=== PATIENT | male | born 1970 | race Caucasian/White ===

== ENCOUNTER → 2017-11-03 09:24 | Outpatient (POV) | payer OTHER, SELFPAY ==
[2017-11-03 09:46] VITALS: BP 149/73; RESP 18; O2SAT 98
--- NOTE | 2017-11-03 10:50 | HMH.PMCON ---
Assessment and Plan (1) Degenerative disc disease Current visit: Yes Status: Chronic Qualifiers: Spinal region: lumbar Qualified Code(s): M51.36 - Other intervertebral disc degeneration, lumbar region Category: Medical (2) Post laminectomy syndrome Current visit: Yes Status: Chronic Category: Medical Code(s): M96.1 - Postlaminectomy syndrome, not elsewhere classified - Assessment and plan all Dx Assessment and Plan for all problems:: I gave the patient information on neuro stimulation. Patient is a reviewed this. Patient will be seen by his primary care physician again. Patient understands that we do not do primary medication management for pain medication. We will follow-up with the patient if he is interested in neuro stimulation. This note was dictated using voice recognition software and may contain errors or omissions HPI - Data of Consult Consult date: 11/03/17 Requesting Physician: Breanna Hagan APRN Primary Care Provider: Cesia Marcum Family Provider: Cesia Farrell MD - Consult Narrative Reason for consult: Neck and back pain History of present illness: Mr. Barkley is a 47 year old male presents today for consultation in regards to his generalized pain specifically in his neck and his low back. Patient had neck surgery back in May. Patient states that he had a disc replacement. Patient states that the neurosurgeon told him that he would need a fusion however on the day of the surgery he changed it to a disc replacement. Patient states he is also told he needed back surgery however this was never completed. Patient states he fired his neurosurgeon . Patient states that since this is happened he has been unable to get his pain medication. Patient states he had been referred to several pain clinics however they do not answer their phone. He states that last time he spoke with somebody at a another pain clinic they were pissy . Patient states he does not want to go to these places. Patient states that he is seen a psychiatrist after his mom stating that he had some harmful thoughts however not self-harm. Patient states that the doctors wanted to increase his medications however he told them no. Patient does have an MRI showing degenerative disc disease along with possible nerve impingement. Patient has tried injections and states they do not help. Patient states that physical therapy is like a torture chamber I discussed with the patient that we do not do primarily medication management here. Patient states that the dope heads are running [employer] and doctors just drain the insurance [employer] . I discussed with the patient that the only thing we could really offer him with a neurostimulator. I did give the patient some information on this. Patient is asking what he should do with his pain medicine right now stating that his primary care we will only write him for 2 a day. I encouraged him to look into the information on neuro stimulation and I also encouraged him to making a follow-up an appointment with his primary care physician. Patient rates his pain a 9 out of 10 today. Mostly in his neck and left arm. She has numbness and tingling in bilateral legs along with left arm CC: Breanna Hagan APRN [facility] History I have reviewed the patient's past medical history: Yes Medical History: Reports:: Hypertension Denies:: Diabetes Mellitus Type 1, Diabetes Mellitus Type 2 Other Medical History: Reports: Arthritis Laterality Cases: Left: Other - *Social History Smoking Status: Current every day smoker Tobacco Type: cigarettes # Packs/Day (cigarettes): 1 Alcohol Intake: never Occupational Status: employed Housing: house - Psychiatric History Expresses thoughts of harming self/others: None Suicide Plan Description: No Plan *Family Hx:: Bleeding Disorder, Cancer Review of Systems - Review of Systems ROS General: no recent weight change, no fever, no sl
--- NOTE | 2017-11-03 10:53 | P.CONS_ITS ---
Assessment and Plan (1) Degenerative disc disease Current visit: Yes Status: Chronic Qualifiers: Spinal region: lumbar Qualified Code(s): M51.36 - Other intervertebral disc degeneration, lumbar region Category: Medical (2) Post laminectomy syndrome Current visit: Yes Status: Chronic Category: Medical Code(s): M96.1 - Postlaminectomy syndrome, not elsewhere classified - Assessment and plan all Dx Assessment and Plan for all problems:: I gave the patient information on neuro stimulation. Patient is a reviewed this. Patient will be seen by his primary care physician again. Patient understands that we do not do primary medication management for pain medication. We will follow-up with the patient if he is interested in neuro stimulation. This note was dictated using voice recognition software and may contain errors or omissions HPI - Data of Consult Consult date: 11/03/17 Requesting Physician: Breanna Hagan APRN Primary Care Provider: Cesia Marcum Family Provider: Cesia Farrell MD - Consult Narrative Reason for consult: Neck and back pain History of present illness: Mr. Barkley is a 47 year old male presents today for consultation in regards to his generalized pain specifically in his neck and his low back. Patient had neck surgery back in May. Patient states that he had a disc replacement. Patient states that the neurosurgeon told him that he would need a fusion however on the day of the surgery he changed it to a disc replacement. Patient states he is also told he needed back surgery however this was never completed. Patient states he fired his neurosurgeon . Patient states that since this is happened he has been unable to get his pain medication. Patient states he had been referred to several pain clinics however they do not answer their phone. He states that last time he spoke with somebody at a another pain clinic they were pissy . Patient states he does not want to go to these places. Patient states that he is seen a psychiatrist after his mom stating that he had some harmful thoughts however not self-harm. Patient states that the doctors wanted to increase his medications however he told them no. Patient does have an MRI showing degenerative disc disease along with possible nerve impingement. Patient has tried injections and states they do not help. Patient states that physical therapy is like a torture chamber I discussed with the patient that we do not do primarily medication management here. Patient states that the dope heads are running [employer] and doctors just drain the insurance [employer] . I discussed with the patient that the only thing we could really offer him with a neurostimulator. I did give the patient some information on this. Patient is asking what he should do with his pain medicine right now stating that his primary care we will only write him for 2 a day. I encouraged him to look into the information on neuro stimulation and I also encouraged him to making a follow-up an appointment with his primary care physician. Patient rates his pain a 9 out of 10 today. Mostly in his neck and left arm. She has numbness and tingling in bilateral legs along with left arm CC: Breanna Hagan APRN [facility] History I have reviewed the patient's past medical history: Yes Medical History: Reports:: Hypertension Denies:: Diabetes Mellitus Type 1, Diabetes Mellitus Type 2 Other Medical History: Reports: Arthritis Laterality Cases: Left: Other - *Social History Smoking Status: Current every day smoker Tobacco Type: cigarettes # Packs/Day (cigarettes): 1 A
== END ==
PROVIDERS: PCP Family Medicine; Visit Provider Clinical Nurse Specialist Family Health
DX: M51.36 Other intervertebral disc degeneration, lumbar region (principal); M96.1 Postlaminectomy syndrome, not elsewhere classified
CPT/HCPCS: 99202

== ENCOUNTER 2018-02-26 09:01 | Outpatient (RCR) | payer OTHER, SELFPAY | END 2018-02-26 09:05 | disposition home or self-care (01) | LOC: PT 09:01 | PROVIDERS: Visit Provider Physician Assistant Medical | DX: M47.812 Spondylosis without myelopathy or radiculopathy, cervical region (principal); M47.816 Spondylosis without myelopathy or radiculopathy, lumbar region | CPT/HCPCS: 97163 ==

== ENCOUNTER → 2020-09-29 10:29 | Outpatient (CLI) | payer MEDICARE, OTHER, SELFPAY ==
[2020-09-29 11:02] LABS: Basophils # 0.1 K/mm3 (0-0.2); Basophils % 0.9 % (0.1-2.0); Eosinophils # 0.2 K/mm3 (0.0-0.4); Hematocrit 48.1 % (42.0-52.0); Hemoglobin 15.8 g/dL (14.1-18.0); Lymphocytes # 2.1 K/mm3 (0.7-4.5); Lymphocytes % 32.1 % (10-50); Mean Corpuscular HGB Conc 32.9 g/dL (31.8-35.4); Mean Corpuscular Hemoglobin 29.1 pg (27.0-31.2); Mean Corpuscular Volume 88.4 fl (80-94); Mean Platelet Volume 7.5 fl (7.4-10.4); Monocytes # 0.5 K/mm3 (0.1-1.0); Monocytes % 8.3 % (1.7-9.3); Neutrophils # 3.6 K/mm3 (1.8-7.8); Neutrophils % 55.6 % (37.0-80.0); Platelet Count 224 K/mm3 (142-424); Red Blood Count 5.44 M/mm3 (4.60-6.20); Red Cell Distribution Width 13.5 % (11.5-17.5); White Blood Count 6.4 K/mm3 (4.8-10.8)
[2020-09-29 11:24] LABS: Chloride 100 mmol/L (98-107); Sodium 138 mmol/L (136-145)
[2020-09-29 11:25] LABS: Potassium 5.2 mmoL/L (3.5-5.1)
[2020-09-29 11:27] LABS: Alanine Aminotransferase 16 U/L (12-78); Alkaline Phosphatase 65 U/L (38-126); Anion Gap 13.2 mEq/L (5-15); Aspartate Amino Transferase 29 U/L (17-59); Bilirubin,Total 0.4 mg/dl (0.2-1.3); Blood Urea Nitrogen 18 mg/dl (9-20); Calcium 9.6 mg/dl (8.4-10.2); Carbon Dioxide 30 mmol/L (22.0-30.0); Cholesterol 208 mg/dl (140-200); Estimated Glomerular Filt Rate 90 ml/min (>60); GFR (African American) 109 ML/MIN (>60); Glucose 100 mg/dl (74-100); Iron 107 ug/dL (49-181); Triglycerides 92 mg/dl (30-150); VLDL Cholesterol 18 mg/dL (0-40)
[2020-09-29 11:28] LABS: Albumin Level 4.4 g/dl (3.5-5.0); Albumin/Globulin Ratio 1.6 (1.1-1.8); Chol/HDL Ratio 3.3 (1-3.5); Globulin 2.8 g/dL (1.3-3.2); HDL Cholesterol 63 mg/dl (40-60); Total Protein,Serum 7.2 g/dl (6.3-8.2)
[2020-09-29 11:37] LABS: Total Iron Binding Capacity 279 ug/dL (261-462)
[2020-09-29 11:38] LABS: Direct LDL Cholesterol 123.24 mg/dL (100-129)
[2020-09-29 12:55] LABS: Vitamin B12 286 pg/mL (239-931)
== END ==
PROVIDERS: Visit Provider Internal Medicine Adolescent Medicine
DX: G62.9 Polyneuropathy, unspecified (principal); F17.200 Nicotine dependence, unspecified, uncomplicated; Z79.899 Other long term (current) drug therapy; E87.5 Hyperkalemia
CPT/HCPCS: 36415; 80053; 80061; 82607; 83540; 83550; 85025

== ENCOUNTER 2020-10-26 08:00 | Outpatient (RCR) | payer MEDICARE, OTHER, SELFPAY | END 2020-10-26 08:05 | disposition home or self-care (01) | LOC: PT 08:00 | PROVIDERS: PCP Family Medicine; Visit Provider Neurological Surgery | DX: M47.22 Other spondylosis with radiculopathy, cervical region (principal) | CPT/HCPCS: 20560; 97010; 97012; 97014; 97035; 97110; 97140; 97163; 97164; G0283 ==